=== PATIENT | female | born 2000 | race American Indian/Alaskan Native ===

== ENCOUNTER 2021-01-18 03:03 | Emergency (ER) | payer MEDICAID ==
[2021-01-18 04:31] VITALS: BP 119/72
--- NOTE | 2021-01-18 05:56 | Emergency Department Report ---
ED Female HPI - General Chief complaint: Urogenital-Female Stated complaint: VAGINAL ITCHING/BURNING; NAIL PROBLEM Source: patient Mode of arrival: Ambulatory Limitations: No Limitations - History of Present Illness Initial comments: Patient is a nulliparous 20-year-old -French female with no past medical history presents to the ED with complaint of acute onset persistent severe dysuria, urinary frequency and urgency, suprapubic pressure and vaginal itching for the last 2 days. Patient states that urination makes the pain worse and that in the last 12 hours she noticed that she was also having vaginal discharge which she describes as white in color but no smell. Patient also complains of left little finger nail pain after her artificial nails were caught up and peeled about 8 hours ago. Patient denies fall, traumatic injury, nausea, vomiting, chest pain, shortness of breath, vaginal bleeding, dyspareunia, low back pain, abdominal pain, diarrhea, change in vision, cough, sore throat, fever and chills. MD Complaint: vaginal discharge, dysuria, other (Urinary frequency and urgency) -: Sudden, days(s) (2) Location: suprapubic, other (Vaginal) Radiation: non-radiating Severity: moderate Severity scale (0 -10): 6 Quality: sharp, burning Consistency: constant Improves with: none Worsens with: urination Are you Now?: No Associated Symptoms: denies other symptoms, vaginal discharge, abdominal pain (Suprapubic pressure), dysuria, other (Urinary frequency and urgency). denies: vaginal bleeding, nausea/vomiting, fever/chills, headaches, hematuria, rash, seizure, shortness of breath, syncope, weakness - Related Data Sexually active: Yes : 0 Para: 0 A: 0 Previous Rx's Medication Instructions Recorded Last Taken Type Fluconazole [Diflucan TAB] 200 mg PO QDAY #1 tablet 01/18/21 Unknown Rx Ibuprofen [Motrin] 600 mg PO Q8H PRN #30 tablet 01/18/21 Unknown Rx Ondansetron [Zofran Odt] 4 mg PO Q8HR PRN #15 tab.rapdis 01/18/21 Unknown Rx Phenazopyridine [Pyridium] 200 mg PO Q12H #20 tab 01/18/21 Unknown Rx cephALEXin [Keflex] 500 mg PO Q8HR #30 cap 01/18/21 Unknown Rx metroNIDAZOLE [Flagyl] 500 mg PO Q12HR #14 tab 01/18/21 Unknown Rx Allergies Allergy/AdvReac Type Severity Reaction Status Date / Time Sulfa (Sulfonamide Allergy Hives Verified 01/18/21 04:41 Antibiotics) sulfamethoxazole Allergy Itching Verified 01/18/21 04:41 [From Bactrim] trimethoprim [From Bactrim] Allergy Itching Verified 01/18/21 04:41 ED Review of Systems ROS: Stated complaint: VAGINAL ITCHING/BURNING; NAIL PROBLEM Other details as noted in HPI Constitutional: denies: chills, fever Eyes: denies: eye pain, eye discharge, vision change ENT: denies: ear pain, throat pain Respiratory: denies: cough, shortness of breath, wheezing Cardiovascular: denies: chest pain, palpitations Endocrine: no symptoms reported Gastrointestinal: abdominal pain (Suprapubic pressure). denies: nausea, diarrhea Genitourinary: urgency, dysuria, frequency, discharge Musculoskeletal: arthralgia (Distal left little fingernail pain). denies: back pain, joint swelling Skin: denies: rash, lesions Neurological: denies: headache, weakness, paresthesias Psychiatric: denies: anxiety, depression Hematological/Lymphatic: denies: easy bleeding, easy bruising ED Past Medical Hx - Past Medical History Previous Medical History?: No - Surgical History Past Surgical History?: No - Social History Smoking Status: Current Every Day Smoker Substance Use Type: None - Medications Home Medications: Home Medications Medication Instructions Recorded Confirmed Last Taken Type Fluconazole [Diflucan TAB] 200 mg PO QDAY #1 tablet 01/18/21 Unknown Rx Ibuprofen [Motrin] 600 mg PO Q8H PRN #30 tablet 01/18/21 Unknown Rx Ondansetron [Zofran Odt] 4 mg PO Q8HR PRN #15 tab.rapdis 01/18/21 Unknown Rx Phenazopyridine [Pyridium] 200 mg PO Q12H #20 tab 01/18/21 Unknown Rx cephALEXin [Keflex] 500 mg PO Q8HR #30 cap 01/18/21 Unknown Rx metroNIDAZOLE [Flagyl] 500 mg PO Q12HR #14 tab 01/18/21 Unknown Rx ED Physical Exam - General Limitations: No Limitations General appearance: alert, in no apparent distress - Head Head exam: Present: atraumatic, normocephalic, normal inspection - Eye Eye exam: Present: normal appearance, PERRL, EOMI Pupils: Present: normal accommodation - ENT ENT exam: Present: normal exam, normal orophraynx, mucous membranes moist, TM's normal bilaterally, normal external ear exam - Neck Neck exam: Present: normal inspection, full ROM - Respiratory Respiratory exam: Present: normal lung sounds bilaterally. Absent: respiratory distress, wheezes, rales, rhonchi, accessory muscle use, decreased breath sounds, prolonged expiratory - Cardiovascular Cardiovascular Exam: Present: regular rate, normal rhythm, normal heart sounds. Absent: systolic murmur, diastolic murmur, rubs, gallop - GI/Abdominal GI/Abdominal exam: Present: soft, normal bowel sounds. Absent: tenderness, guarding, hyperactive bowel sounds, hypoactive bowel sounds, organomegaly - Bi-manual exam: Present: other (Pelvic exam deferred at this time) - Extremities Exam Extremities exam: Present: normal inspection, full ROM, tenderness (Palpable distal left little fingernail tenderness, no swelling or redness and bleeding), normal capillary refill - Back Exam Back exam: Present: normal inspection, full ROM. Absent: tenderness, CVA tenderness (R), CVA tenderness (L), muscle spasm, paraspinal tenderness, vertebral tenderness - Neurological Exam Neurological exam: Present: alert, oriented X3, CN II-XII intact, normal gait, reflexes normal - Psychiatric Psychiatric exam: Present: normal affect, normal mood - Skin Skin exam: Present: warm, dry, intact, normal color. Absent: rash ED Course Vital Signs 01/18/21 04:15 Temperature 98.7 F Pulse Rate 80 Respiratory 18 Rate Blood Pressure 119/72 O2 Sat by Pulse 100 Oximetry ED Medical Decision Making - Medical Decision Making This is a nulliparous 20-year-old -French female with no past medical history presents to the ED with complaint of acute onset persistent severe dysuria, urinary frequency and urgency, suprapubic pressure and vaginal itching for the last 2 days. Patient states that urination makes the pain worse and that in the last 12 hours she noticed that she was also having vaginal discharge which she describes as white in color but no smell. Patient also complains of left little finger nail pain after her artificial nails were caught up and peeled about 8 hours ago. In the ED, patient is alert and oriented x3 and is not in any distress. Patient was treated for pain in the ED and urinalysis was unremarkable. Patient was empirically discharged home on medications based on her symptoms and was advised to follow-up with her primary care physician in 5 to 7 days for reevaluation. Patient was advised return to the ED immediately if symptoms get worse. - Differential Diagnosis UTI; ; STD; bacterial vaginosis; Pam vaginitis; finger injury Critical care attestation.: If time is entered above; I have spent that time in minutes in the direct care of this critically ill patient, excluding procedure time. ED Disposition Clinical Impression: Contusion of left little finger with damage to nail, initial encounter, Bacterial vaginosis, Acute urinary tract infection Disposition: TO HOME OR SELFCARE Is pt being admited?: No Does the pt Need Aspirin: No Condition: Stable Instructions: Urinary Tract Infection, Adult, [id number], Bacterial Vaginosis, [id number], Nail Bed Injury, [id number], Bacterial Vaginosis (ED) Additional Instructions: Take medication with food, drink plenty of fluids and follow-up with your primary care physician in 7 to 10 days for reevaluation. Return to the ED immediately if symptoms get worse. Prescriptions: Fluconazole [Diflucan TAB] 200 mg PO QDAY #1 tablet metroNIDAZOLE [Flagyl] 500 mg PO Q12HR #14 tab cephALEXin [Keflex] 500 mg PO Q8HR #30 cap Ibuprofen [Motrin] 600 mg PO Q8H PRN #30 tablet PRN Reason: Pain Phenazopyridine [Pyridium] 200 mg PO Q12H #20 tab Ondansetron [Zofran Odt] 4 mg PO Q8HR PRN #15 tab.rapdis PRN Reason: Nausea Referrals: [facility] [Provider Group] - 7-10 days Forms: STI Treatment and Prevention Time of Disposition: 06:02 Print Language: AUSTRIAN
[2021-01-18 06:03] LABS: Bacteria,Urine 1+ /HPF (Negative); Bilirubin,Urine NEG (Negative); Blood,Urine NEG (Negative); Color,Urine Yellow (Yellow); Mucus,Urine 1+ /HPF; Urobilinogen,Urine < 2.0 mg/dL (<2.0)
[2021-01-18 06:04] LABS: HCG Qualitative,Urine Negative (Negative)
== END 2021-01-18 06:24 | disposition home or self-care (01) ==
LOC: ED 03:03
DX: S60.052A Contusion of left little finger without damage to nail, initial encounter (principal); N39.0 Urinary tract infection, site not specified; N76.0 Acute vaginitis; Z88.2 Allergy status to sulfonamides; Z88.8 Allergy status to other drugs, medicaments and biological substances; B96.89 Other specified bacterial agents as the cause of diseases classified elsewhere; F17.200 Nicotine dependence, unspecified, uncomplicated; Z79.899 Other long term (current) drug therapy; W31.89XA Contact with other specified machinery, initial encounter; Y93.89 Activity, other specified; Y92.89 Other specified places as the place of occurrence of the external cause; Y99.8 Other external cause status
CPT/HCPCS: 81001; 81025; 99283